=== PATIENT | female | born 1990 | race African-American/Black ===

== ENCOUNTER → 2018-05-24 12:18 | Outpatient (CLI) | payer MEDICAID ==
[2014-10-24 20:42] VITALS: BMI 35.6
[~2018-05-24 12:18] MED LIST: ACETAMINOPHEN500 M1 PO; IBUPROFEN600 MG PO; PERCOCET 5-3251 TAB PO; PRENATAL COMPLE1 TAB PO
== END | disposition home or self-care (01) ==
LOC: D.LDO 12:18
PROVIDERS: ATTEND Obstetrics & Gynecology
DX: O10.919 Unspecified pre-existing hypertension complicating pregnancy, unspecified trimester (principal); Z3A.00 Weeks of gestation of pregnancy not specified

== ENCOUNTER → 2018-05-27 13:24 | Outpatient (CLI) | payer MEDICAID ==
[2014-10-24 20:42] VITALS: BMI 35.6
== END | disposition home or self-care (01) ==
LOC: D.LDO 13:24
PROVIDERS: ATTEND Obstetrics & Gynecology
DX: O16.3 Unspecified maternal hypertension, third trimester (principal); Z3A.32 32 weeks gestation of pregnancy

== ENCOUNTER → 2018-05-31 11:43 | Outpatient (CLI) | payer MEDICAID ==
[2014-10-24 20:42] VITALS: BMI 35.6
== END | disposition home or self-care (01) ==
LOC: D.LDO 11:43
PROVIDERS: ATTEND Obstetrics & Gynecology
DX: O16.3 Unspecified maternal hypertension, third trimester (principal); Z3A.33 33 weeks gestation of pregnancy

== ENCOUNTER 2018-06-04 16:30 | Outpatient (CLI) | payer MEDICAID ==
[2014-10-24 20:42] VITALS: BMI 35.6
== END 2018-06-04 17:00 | disposition home or self-care (01) ==
LOC: D.LDO 16:30
PROVIDERS: ATTEND Obstetrics & Gynecology
DX: O26.899 Other specified pregnancy related conditions, unspecified trimester (principal); Z3A.00 Weeks of gestation of pregnancy not specified

== ENCOUNTER 2018-06-07 13:18 | Outpatient (CLI) | payer MEDICAID ==
[2014-10-24 20:42] VITALS: BMI 35.6
== END 2018-06-07 14:26 | disposition home or self-care (01) ==
LOC: D.LDO 13:18
PROVIDERS: ATTEND Obstetrics & Gynecology
DX: O26.893 Other specified pregnancy related conditions, third trimester (principal); Z3A.34 34 weeks gestation of pregnancy

== ENCOUNTER → 2018-06-11 14:22 | Outpatient (CLI) | payer MEDICAID ==
[2014-10-24 20:42] VITALS: BMI 35.6
== END | disposition home or self-care (01) ==
LOC: D.LDO 14:22
PROVIDERS: ATTEND Obstetrics & Gynecology
DX: O16.3 Unspecified maternal hypertension, third trimester (principal); Z3A.34 34 weeks gestation of pregnancy

== ENCOUNTER → 2018-06-21 14:16 | Outpatient (CLI) | payer MEDICAID ==
[2014-10-24 20:42] VITALS: BMI 35.6
[~2018-06-21 14:16] MED LIST changes: +IBUPROFEN800 MG PO
== END | disposition home or self-care (01) ==
LOC: D.LDO 14:16
PROVIDERS: ATTEND Obstetrics & Gynecology
DX: O26.893 Other specified pregnancy related conditions, third trimester (principal); Z3A.38 38 weeks gestation of pregnancy

== ENCOUNTER → 2018-06-29 00:15 | Outpatient (CLI) | payer MEDICAID ==
[2014-10-24 20:42] VITALS: BMI 35.6
== END | disposition home or self-care (01) ==
LOC: D.LDO 00:15
PROVIDERS: ATTEND Obstetrics & Gynecology
DX: O26.90 Pregnancy related conditions, unspecified, unspecified trimester (principal)

== ENCOUNTER 2018-07-01 14:06 | Inpatient (IN) | payer MEDICAID ==
[~2018-07-01] VITALS: Ht 167.6 cm; Wt 113.9 kg
[~2018-07-01 14:06] MED LIST changes: -IBUPROFEN800 MG PO
[2018-07-01] MEDS ORDERED: ACETAMINOPHEN500 M1 PO (15:47)
[2018-07-01 17:23] VITALS: BP 117/69; Ht 167.6 cm; Wt 113.9 kg
[2018-07-01 17:46] LABS: HEMATOCRIT 34.6 % (36.0-48.0); HEMOGLOBIN 11.5 g/dL (12-16); MCHC 33.2 g/dL (31.0-37.0); MCV 90.3 fL (80.0-100.0); MEAN PLATELET VOLUME 10.5 fL (7.4-10.4); RBC 3.83 10x6/uL (4.00-5.40); RDW 14.2 % (11.5-14.5); WBC 12.3 10x3/uL (4.8-10.8)
[2018-07-01 21:15] LABS: CREATININE - URINE 32.8 mg/dL (30-125); PRO/CRE RATIO URINE 0.3 mg/g; PROTEIN - URINE 8.3 mg/dL (0.0-11.9)
[2018-07-01 21:19] LABS: UDS - AMPHET NEGATIVE QUAL (NEGATIVE); UDS - BARB NEGATIVE QUAL (NEGATIVE); UDS - BENZO NEGATIVE QUAL (NEGATIVE); UDS - COCAINE NEGATIVE QUAL (NEGATIVE); UDS - OPIATE NEGATIVE QUAL (NEGATIVE); UDS - PCP NEGATIVE QUAL (NEGATIVE); UDS - THC NEGATIVE QUAL (NEGATIVE)
[2018-07-01 22:22] LABS: ALBUMIN 2.5 g/dL (3.4-5.0); ALKALINE PHOSPHATASE 158 U/L (46-116); ALT (SGPT) 18 U/L (10-68); BILIRUBIN - TOTAL 0.26 mg/dL (0.2-1.3); CALC OSMOLALITY 274 mosm/kg (275-300); CALCIUM 8.9 mg/dL (8.5-10.1); CARBON DIOXIDE 23.8 mmol/L (21.0-32.0); CHLORIDE - SERUM 105 mmol/L (98-107); CREATININE - SERUM 0.5 mg/dL (0.6-1.3); GLUCOSE 86 mg/dL (74-106); LDH 149 U/L (81-234); POTASSIUM - SERUM 3.4 mmol/L (3.5-5.1); PROTEIN - SERUM 6.3 g/dL (6.4-8.2); SODIUM 140 mmol/L (136-145); UREA NITROGEN 3 mg/dL (7-18); URIC ACID 4.1 mg/dL (2.6-7.2); eGFR NON AFRICAN AMERICAN > 90 mL/min (90-120)
[2018-07-02 08:38] LABS: HEMATOCRIT 37.2 % (36.0-48.0); HEMOGLOBIN 12.2 g/dL (12-16); MCH 29.8 pg (26.0-34.0); MCHC 32.8 g/dL (31.0-37.0); MEAN PLATELET VOLUME 10.6 fL (7.4-10.4); RBC 4.09 10x6/uL (4.00-5.40); RDW 14.2 % (11.5-14.5); WBC 22.7 10x3/uL (4.8-10.8)
--- NOTE | 2018-07-02 15:18 | NUR ---
SCHEDULED MOTRIN 800 MG GIVEN. REQUESTED PAIN MEDICATION FOR 7 ABDOMINAL CRAMPING, PERINEAL PAIN AND LEFT FOOT PAIN STATES "IT FEELS LIKE IT GOING TO POP". PERCOCET 5 MG GIVEN FOR 710 PAIN. DISCUSSED AVOIDING CROSSING LEGS, DANGLING LEGS OFF BED AND ELEVATING FEET AND LE TO HELP DECREASE LE EDEMA. ENCOURAGE PO HYDRATION. IN NURSERY. SIDE RAILS UP X 2, UP AD KAYE TO BR, VOIDING WITHOUT DIFFICULTY. DENIES FURTHER DIARRHEA. NO ADDITIONAL REQUEST. CALL LIGHT IN REACH.
--- NOTE | 2018-07-02 15:44 | NUR ---
Florence ALFORD CRNA CALLED TO GIVE PRE-OP ORDERS FOR PATIENT. BTL IS PLANNED FOR TOMORROW AT 0800.
--- NOTE | 2018-07-02 17:10 | NUR ---
REPORT OF UNEQUAL EDEMA CALLED TO DR GAMING. ORDERS RECIEVED AND NOTED.
--- NOTE | 2018-07-02 17:20 | NUR ---
PT DENIES SOB OR CHEST PAIN AT THIS TIME. POC DISCUSSED. [place] HAT PLACED IN TOILET FOR STRICT I AND O MONITORING.PT JUST FINISHED A 12OZ SPRITE WITH DINNER. EXPLAINED 3000ML FLUID RESTRICTION. PT VERBALIZES UNDERSTANDING AT THIS TIME.
--- NOTE | 2018-07-02 17:43 | NUR ---
PT IN LEFT LATERAL POSITION RESTING WITH EYES CLOSED. 20MG LASIX GIVEN SLOW IVP. FF/U/U. LIGHT RUBRA LOCHIA NOTED. PT DENIES FURTHER NEEDS AT THIS TIME
--- NOTE | 2018-07-02 19:00 | NUR ---
REPORT GIVEN TO TIANNA SPRING RN
--- NOTE | 2018-07-02 19:26 | NUR ---
PT REC'D IN HIGH FOWLERS POSITION WITH INFANT IN ARMS. PLAN OF CARE DISCUSSED. PT VERBALIZES AGREEMENT. QUESTIONS REGARDING FLUID RESTRICTION AMT ANSWERED. REQUESTS TO SHOWER FOLLOWING VISIT WITH FAMILY MEMBERS. DISCUSSED MOVING PT TO ROOM 1257, REQUESTS TO WAIT TO MOVE UNTIL SHE VISITS WITH FAMILY D/T THEM KNOWING THE ROOM THAT SHE IS IN. INSTRUCTED PT TO NOTIFY RN WHEN SHE WAS READY TO TRANSFER ROOM. VERBALIZES UNDERSTANDING. BED IN LOW POSITION WITH UPPER SIDE RAILS RAISED X2. CALL LIGHT AND PHONE WITHIN REACH. WILL CONTINUE TO MONITOR AND ASSIST PRN.
[2018-07-02 20:15] VITALS: BP 100/55
--- NOTE | 2018-07-02 20:15 | NUR ---
SHIFT ASSESSMENT COMPLETED PER FLOWSHEET. VSS. FUNDUS FIRM MIDLINE AND U2 WITH SMALL AMT RUBRA LOCHIA, NO CLOTS NOTED. C/O INTERMITTENT ABD CRAMPING, 09/21 REQUEST PAIN MED, WILL PROVIDE PER ORDER. LLE WITH 3+ PITTING EDEMA, RLE 1+, MD AWARE PER PROGRESS NOTES AND PT REPORTS THAT SHE REC'D LASIX. +2 PEDAL PULSES, STATES "IT JUST FEELS TIGHT AND UNCOMFORTABLE BECAUSE IT'S TIGHT." NO WARMTH NOTED, NEG CLONUS AND HOMANS. PIV TO L HAND FLUSHED WITHOUT DIFFICULTY WITH 5 MLS NS, NO S/S OF INFILTRATION NOTED, ANCEF INFUSION BEGAN. MILK OF MAG GIVEN PER ORDER. 550 MLS URINE EMPTIED FROM HAT. SODA PROVIDED PER PT REQUEST. DENIES ADDITIONAL NEEDS. PT STATES THAT SHE WILL SHOWER WHEN SHE MOVES TO NEW ROOM. BED IN LOW POSITION WITH UPPER SIDE RAILS RAISED X2. CALL LIGHT AND PHONE WITHIN REACH. WILL CONTINUE TO MONITOR AND ASSIST PRN.
--- NOTE | 2018-07-02 20:17 | NUR ---
PERCOCET GIVEN PER PT REQUEST/ORDER. DENIES ADDITIONAL NEEDS AT THIS TIME. BED IN LOW POSITION WITH UPPER SIDE RAILS RAISED X2. SPOUSE AT BEDSIDE, SUPPORTIVE AND ATTENTIVE TO PT AND NEEDS. WILL CONTINUE TO MONITOR AND ASSIST PRN.
--- NOTE | 2018-07-02 21:13 | NUR ---
CONVERSING WITH VISITORS. IN VISITORS ARMS. PAIN 4/10, DENIES ADDITIONAL NEEDS AT THIS TIME. BED IN LOW POSITION WITH UPPER SIDE RAILS RAISED X2. CALL LIGHT AND PHONE WITHIN REACH. WILL CONTINUE TO MONITOR AND ASSIST PRN.
--- NOTE | 2018-07-02 22:10 | NUR ---
CALLS VIA CL, SITTING ON COUCH IN ROOM. REQUESTS TO MOVE TO NEW ROOM. PT AMBULATORY TO ROOM 1257, STEADY GAIT NOTED. REQUESTS TO SHOWER PRIOR TO GETTING INTO BED. REFUSES V/S CHECK UNTILS SHE SHOWERS. PT ASKS IF SHE CAN EAT FOOD IF HER BRINGS IT TO HER PROIR TO MN, REVIEWED WITH PT THAT SHE WAS NPO P MN PER ORDER, BUT SHE COULD EAT AND DRINK UNTIL THEN, VERBALIZES UNDERSTANDING AND DENIES QUESTIONS. ROOM PREPARED PER PROTOCOL FOR SEIZURES PRECAUTIONS. PT ORIENTED TO ROOM, CL LIGHT USE, BED RAIL, AND BATHROOM. INSTRUCTED ADVERTISING CLERK LIGHT USE IN BATHROOM, VERBALIZES UNDERSTANDING. BED IN LOW POSITION WITH UPPER SIDE RAILS RAISED X2. CALL LIGHT AND PHONE WITHIN REACH. PT INSTRUCTED ON PERICARE WITH PERIBOTTLE, TUX, AND DERMAPLAST, VERBALIZES UNDERSTANDING. REINFORCE NEED FOR STRICT I&O AND NOTIFING RN WHEN SHE VOIDS, VERBALIZES UNDERSTANDING. HAT PLACED IN BATHROOM.
--- NOTE | 2018-07-02 22:25 | NUR ---
TOWELS AND WASH CLOTHES PROVIDED FOR SHOWER, REQUESTS TO WEAR HER OWN CLOTHES. INFORMED THAT SHE WOULD HAVE TO CHANGE INTO HOSPITAL GOWN PRIOR TO BTL, VERBALIZES UNDERSTANDING. PT PREPARING TO SHOWER, DENIES DIZZINESS, VERBALIZES USE OF CL IN BATHROOM. TO NBN FOR PT TO SHOWER.
[2018-07-02 23:17] VITALS: BP 117/72
--- NOTE | 2018-07-02 23:17 | NUR ---
OUT OF SHOWER. ICE WATER PROVIDED.MOTRIN GIVEN PER ORDER. ABD CRAMPING 06/22. EATING MEAL BROUGHT BY SPOUSE. REINFORCED NPO P MN, VERBALIZES UNDERSTANDING. DENIES NEEDS. VSS.
--- NOTE | 2018-07-02 23:37 | NUR ---
PAIN REASSESSMENT COMPLETED, 05/22. [place] PROVIDED PER REQUEST. BED IN LOW POSITION WITH UPPPER SIDE RAILS RAISED X2. CALL LIGHT AND PHONE WITHIN REACH. WILL CONTINUE TO MONITOR AND ASSIST PRN.
[2018-07-03] VITALS (7 sets, daily range): BP systolic 92–113; BP diastolic 32–69
--- NOTE | 2018-07-03 01:15 | NUR ---
PT. AWAKENED FOR VITAL SIGNS. AWAKENS ONLY BRIEFLY.
--- NOTE | 2018-07-03 03:09 | NUR ---
L HAND PIV FLUSHED WITH 5 MLS NS WITHOUT DIFFICULTY, NO S/S OF INFILTRATION NOTED. ANCEF INFUSION BEGAN, C/O ABD CRAMPING 8/10 FOLLOWING BF. PERCOCET GIVEN PER REQUEST WITH 30 MLS WATER. INFANT IN ARMS. VSS. 300 MLS URINE EMPTIED FROM HAT. DENIES ADDITIONAL NEEDS. BED IN LOW POSITION WITH UPPER SIDE RAILS RAISED X2. CALL LIGHT AND PHONE WITHIN REACH. WILL CONT TO MONITOR.
--- NOTE | 2018-07-03 03:42 | NUR ---
ANCEF INFUSION COMPLETED. PAIN REASSEMMENT 4-07/22, DENIES NEED FOR ADDITIONAL INTERVENTION.
--- NOTE | 2018-07-03 04:15 | NUR ---
ROUNDS MADE. PT GROGGY AND NOTED TO BE FALLING ASLEEP WHILE TRYING TO BOTTLE FEED . REQUEST BE TAKEN TO NBN FOR FEEDING. DENIES ADDITIONAL NEEDS AT THIS TIME. TO NBN PER PT REQUEST. DENIES ADDITIONAL NEEDS. BED IN LOW POSITION WITH UPPER SIDE RAILS RAISED X2. CALL LIGHT AND PHONE WITHIN REACH. WILL CONTINUE TO MONITOR AND ASSIST PRN.
--- NOTE | 2018-07-03 06:15 | NUR ---
OPENS EYE UPON RN ENTRY TO ROOM. VSS. PRE-PREOP CHECKLIST COMPLETED. PT CHANGED INTO GOWN. DENIES PAIN AT THIS TIME. IMPROVE IN BLE EDEMA NOTED SINCE FROM PREVIOUS ASSESSMENT AT BEGINNING OF SHIFT WITH RLE 1+ AND LLE 2+ PITTING. PT REPORTS THAT LLE FEELS LESS THIGHT TO HER. DENIES NEEDS. BED IN LOW POSITION WITH UPPER SIDE RAILS RAISED X2. CALL LIGHT AND PHONE WITHIN REACH. WILL CONT TO MONITOR AND ASSIST PRN.
[2018-07-03 07:13] LABS: HEMATOCRIT 29.9 % (36.0-48.0); MCH 30.3 pg (26.0-34.0); MCHC 33.4 g/dL (31.0-37.0); MCV 90.6 fL (80.0-100.0); MEAN PLATELET VOLUME 10.6 fL (7.4-10.4); PLATELET COUNT 190 10x3/uL (130-400); RDW 14.3 % (11.5-14.5); WBC 22.7 10x3/uL (4.8-10.8)
--- NOTE | 2018-07-03 07:40 | NUR ---
AM ASSESSMENT COMPLETED, FUNDUS FIRM AT U/1 WITH SCANT BLEEDING NOTED TO ADALID PAD. PREOP MEDS GIVEN ORDERED AND LR RECONNECTED AND INFUSING AT KVO. PT UP TO VOID AND UNDERSTANDS THAT MESH BRIEFS MUST BE REMOVED BEFORE GOING TO OR. VOIS 700ML WITHOUT COMPLAINT. RN MEDICAL PATHOLOGIST AND SEAFOOD PROCESS WORKER AT BEDSIDE TALKING WITH PATIENT ABOUT PROCEDURE. TAKEN OFF UNIT BY WHEELCHAIR, TO OR FOR BILATERAL TUBAL LIGATION. NURSERY NURSE NOTIFIED THAT PT OFF UNIT AND IN ROOM WITH FOB.
[2018-07-03 08:35] LABS: LYMPHOCYTES 10 % (15-50); MONOCYTES 9 % (2-11); NEUTROPHILS 76 % (40-80); PLATELET ESTIMATE NORMAL
--- NOTE | 2018-07-03 10:06 | NUR ---
PT RECEIVED BY BED FROM RECOVERY ROOM, BEDSIDE REPORT FROM Kaitlin TAN RN. PT IS AWAKE BUT STILL DROWSY, SHE IS ABLE TO MOVE SELF OVER TO HER ROOM BED WITHOUT ASSISTANCE AND POSITION FOR COMFORT ON RIGHT SIDE WITH HEAD OF BED LOWERED. VSS, O2 90% ON ROOM AIR, NC IN PLACE AND CONNECTED AT 1LPM, O2 AFTER THIS IS N0W 97%, SIDE RAILS UP X 2 AND CALL LIGHT WITH IN HER REACH. SIG OTHER AT BEDSIDE AND REQUEST THAT REMAIN IN NURSERY AT THIS TIME IF POSSIBLE. PT UNDERSTANDS TO CALL FOR NURSE IF SHE FEELS NEED TO VOID.
--- NOTE | 2018-07-03 10:30 | NUR ---
PT RESTING ON RIGHT SIDE, RESPONDS TO HER NAME AND WHEN ASKED RATES PAIN AT 3/10. STILL VERY DROWSY, SIDE RAILS UP X 2 AND CALL LIGHT IN REACH. IN ROOM BEING HELD BY FOB.
--- NOTE | 2018-07-03 11:45 | NUR ---
LARGE ICE WATER PROVIDED PER REQUEST, NO OTHER NEEDS AT THIS TIME.
--- NOTE | 2018-07-03 12:40 | NUR ---
PT RESTING WITH EYES CLOSED AND RESP EVEN, NO DISTRESS, LEFT UNDISTURBED.
--- NOTE | 2018-07-03 13:45 | NUR ---
PAIN MED GIVEN PER PT REQUEST, RATES CONSTANT THROBBING AT 7/10. PT UP TO VOID WITHOUT NEED OF ASSISTANCE CHANGES INTO HER CLOTHING AT THIS TIME ALSO. VOIDED 700ML WITHOUT COMPLAINT. 20oz CUP OF ICE PER REQUEST. INFANT IN CRIB AT BEDSIDE, SIDE RAILS UP X 2 WITH CALL LIGHT IN REACH.
--- NOTE | 2018-07-03 15:54 | NUR ---
pt visiting with friends/family. rates pain at incision site at 10, scheduled motrin given as scanned to emar. pt up to void with nurse in room, 400ml noted to collection hat. denies needs at this time.
--- NOTE | 2018-07-03 18:38 | NUR ---
PT SITTING UP IN BED FEEDING , RATES PAIN AT 1-2/10 AND UNDERSTANDS THAT PAIN MED IS AVAILABLE WHEN NEEDED. FRIENDS/FAMILY AT BEDSIDE, SIDE RAILS UP X 2 WITH CALL LIGHT IN REACH.
--- NOTE | 2018-07-03 19:14 | NUR ---
PT REC'D SITTING ON EDGE OF BED CONVERSING AND LAUGHING WITH VISITORS. DENIES NEEDS AT THIS TIME. BED IN LOW POSITION WITH UPPER SIDE RAILS RAISED X2. CALL LIGHT AND PHONE WITHIN REACH. SIDE RAILS REMAIN PADDED AND SUCTION EQUIPEMENT AT BEDSIDE PER PROTOCOL. WILL CONTINUE TO MONITOR AND ASSIST PRN.
--- NOTE | 2018-07-03 19:31 | NUR ---
SHIFT ASSESSMENT COMPLETED PER FLOWSHEET. VSS. PAIN 2/10 INTERMITTENT ABD CRAMPING, DENIES NEED FOR INTERVENTION. FUNDUS REMAINS FIRM MIDLINE AND U2 WITH SMALL AMT RUBRA LOCHIA, NO CLOTS NOTED. 350 MLS URINE EMPTIED FROM HAT. REINFORCED WITH PT THAT FLUID RESTRICTION REMAINS IN PLACE OF 3000 MLS, APPLE JUICE PROVIDED PER REQUEST (120 MLS). PT REPORTS THAT SHE IS PASSING FLATUS AND VOIDING WITHOUT DIFFICULTY. BOWEL SOUNDS PRESENT AND ACTIVE X4. DRSG TO UMIBILICUS NOTED, BORDERED GAUZE COVERED WITH TEGADERM, NO DRAINAGE NOTED. PT STATES "DR. GAMING TOLD ME IT HAD TO STAY ON FOR A WEEK." REPORTS SIGNIFICANT OTHER IS BRINGING HER A MEAL BUT SHE WILL GET DRINKS FROM STAFF. EDEMA MUCH IMPROVED FROM WHEN THIS RN CARED FOR PT DURING PREVIOUS SHIFT, BLE 1+ PITTING EDEMA, PT DENIES DISCOMFORT OF BLE. SCD'S OFF, REFUSES PLACEMENT, EDUCATED ON IMPORTANCE OF SCD'S AND THEIR PURPOSE, CONTINUES TO REFUSE. EDUCATED ON COUGHING, DEEP BREATHING, AND AMBULATING, VERBALIZES UNDERSTANDING AND REPORTS THAT SHE IS DOING COUGHING AND DEEP BREATHING INDEPENDENTLY AND HAS BEEN AMBULATING IN ROOM AND ON UNIT. STEADY GAIT NOTED. DENIES NEEDS AT THIS TIME. BED IN LOW POSITION WITH UPPER SIDE RIALS RAISED X2. CALL LIGHT AND PHONE WITHIN REACH. PT VERBALIZES THAT SHE IS DOING PERICARE INDEPENDENTLY WITH EACH VOID AND DENIES QUESTIONS. PLAN OF CARE REVIEWED WITH PT AND MED TIMES PLACED ON BOARD IN ROOM.
--- NOTE | 2018-07-03 20:51 | NUR ---
EATING MEAL BROUGHT TO HER BY SIGNIFICANT OTHER. L HAND PIV FLUSHED WITHOUT DIFFICULTY, NO S/S OF INFILTRATION NOTED. ANCEF INFUSION BEGAN. REFUSES MILK OF MAG. C/O ABD CRAMPING AND INCISIONAL PAIN 09/21, REQUESTS PERCOCET, GIVEN PER PT REQUEST/ORDER. ICE WATER PROVIDED PER REQUEST. IN OPEN CRIB AT BEDSIDE RESTING QUIETLY. BED IN LOW POSITION WITH UPPER SIDE RAILS RAISED X2. CALL LIGHT AND PHONE WITHIN REACH. WILL CONTINUE TO MONITOR AND ASSIST PRN.
--- NOTE | 2018-07-03 21:20 | NUR ---
ANCEF INFUSION COMPLETED. L HAND PIV FLUSHED WITH 3 MLS AND SL. PAIN 3-10. ATE 100% OF MEAL BROUGHT BY FAMILY AND DRANK 300 MLS OF WATER. DENIES NEEDS. IN ARMS.
--- NOTE | 2018-07-03 22:10 | NUR ---
SITTING ON EDGE OF BED BOTTLE FEEDING . DENIES NEEDS. 200 MLS URINE EMPTIED FROM HAT. BED IN LOW POSITION WITH UPPER SIDE RAILS RAISED X2. CALL LIGHT AND PHONE WITHIN REACH. WILL CONTINUE TO MONITOR AND ASSIST PRN.
--- NOTE | 2018-07-03 23:20 | NUR ---
SCHEDULED MOTRIN GIVEN PER ORDER. PAIN 4-5/10, ABD CRAMPING AND "SORE, BUT ONLY WHEN I MOVE." VSS. FUNDUS FIRM, MIDLINE AND U2 WITH SMALL RUBRA LOCHIA. 300 MLS URINE EMPTIED FROM HAT. PT NOTIFIED THAT 3000 MLS FLUID ORDER D/C AND VERBALIZED UNDERSTANDING. ICE WATER PROVIDED. DENIES ADDITIONAL NEEDS. INFANT RESTING QUEITLY IN OPEN CRIB AT BEDSIDE. BED IN LOW POSITION WITH UPPER SIDE RAILS RAISED X2. CALL LIGHT WITHIN REACH.
--- NOTE | 2018-07-04 00:03 | NUR ---
PAIN REASSESSMENT COMPLETED. VERBALIZES NO CHANGE IN PAIN. DISCUSSED POSSIBLE INTERVENTIONS. STATES THAT SHE DOESN'T NEED INTERVENTION AT THIS TIME. BED IN LOW POSITION WITH UPPER SIDE RAILS RAISED X2. CALL LIGHT AND PHONE WITHIN REACH. WILL CONTINUE TO MONITOR AND ASSIST PRN.
--- NOTE | 2018-07-04 00:30 | NUR ---
CALLS VIA CALL LIGHT REQUESTING PAIN MEDICATION. STATES THAT GOT UP TO VOID AND WHEN SHE MOVED INFANTS CRIB "I BUMPED MY BELLY AT MY INCISION." PAIN 6/10 INCISIONAL BURNING AND STINGING. PERCOCET PROVIDED. 300 MLS URINE EMPTIED FROM HAT. BED IN LOW POSITION WITH UPPER SIDE RAILS RAISED X2. CALL LIGHT AND PHONE WITHIN REACH. WILL CONTINUE TO MONITOR AND ASSIST PRN.
--- NOTE | 2018-07-04 01:13 | NUR ---
LAYING ON RIGHT SIDE RESTING WITH EYES CLOSED. RESPIRATIONS REGULAR UNLABORED, NO S/S OF DISTRESS NOTED. BED IN LOW POSITION WITH UPPER SIDE RAILS RAISED X2. CALL LIGHT AND PHONE WITHIN REACH. WILL CONTINUE TO MONITOR AND ASSIST PRN.
--- NOTE | 2018-07-04 02:49 | NUR ---
L HAND PIV FLUSHED, NO S/S INFILTRATION NOTED. ANCEF INFUSION BEGAN. PT RESTING ON RIGHT SIDE AT THIS TIME. DENIES NEEDS SIGNIFICANT OTHER AT BEDSIDE, SUPPORTIVE AND ATTENTIVE TO PT AND HER NEEDS. BED IN LOW POSITION WITH UPPER SIDE RAILS RAISED X2. CALL LIGHT AND PHONE WITHIN REACH. WILL CONTINUE TO MONITOR AND ASSIST PRN.
[2018-07-04 03:26] VITALS: BP 99/58
--- NOTE | 2018-07-04 03:26 | NUR ---
ANCEF INFUSION COMPLETED. LINE FLUSHED. PT REQUESTS PIV BE REMOVED. STATES THAT HAND IS SORE FROM "WHERE I KEEP BUMPING." EXPLAINED THAT IF IV ACCESS WAS NEEDED ANOTHER IV MAY HAVE TO BE STARTED, VERBALIZED UNDERSTANDING. PIV REMOVED FROM L HAND, TIP INTACT, BANDAID PLACED OVER INSERTION SITE. VSS. FUNDUS REMAINS FIRM, MIDLINE AND U2 WITH SCANT RUBRA LOCHIA. 400 MLS URINE EMPTIED FROM HAT. DENIES NEEDS. INFANT IN NBN. PT STATES THAT SHE IS GOING TO REST. BED IN LOW POSITION WITH UPPER SIDE RAILS RAISED X2. CL AND PHONE WITHIN REACH. WILL CONTINUE TO MONITOR AND ASSIST PRN. SIGNIFICANT OTHER RESTING ON COUCH AT BEDSIDE.
--- NOTE | 2018-07-04 04:51 | NUR ---
RESTING QUIETLY LAYING ON LEFT SIDE. RESPIRATIONS REGULAR AND UNLABORED, NO S/S OF DISTRESS NOTED. BED IN LOW POSITION WITH UPPER SIDE RAILS RAISED X2. CALL LIGHT AND PHONE WITHIN REACH. WILL CONTINUE MONITOR AND ASSIST PRN.
[2018-07-04 06:22] LABS: BASOPHILS 0.1 % (0-2); EOSINOPHILS 0.8 % (0-7); HEMOGLOBIN 9.5 g/dL (12-16); IMMATURE GRANULOCYTES 0.6 % (0-5); LYMPHOCYTES 29.1 % (15-50); MCH 29.8 pg (26.0-34.0); MCHC 32.8 g/dL (31.0-37.0); MCV 90.9 fL (80.0-100.0); MEAN PLATELET VOLUME 10.2 fL (7.4-10.4); MONOCYTES 9.9 % (2-11); NEUTROPHILS 59.5 % (40-80); PLATELET COUNT 201 10x3/uL (130-400); RBC 3.19 10x6/uL (4.00-5.40); RDW 14.1 % (11.5-14.5)
--- NOTE | 2018-07-04 06:22 | NUR ---
RESTING ON RIGHT SIDE WITH EYES CLOSED, RESPIRATIONS REGULAR AND UNLABORED, NO S/S OF DISTRESS NOTED. BED IN LOW POSITION WITH UPPER SIDE RAILS RAISED X2. CALL LIGHT AND PHONE WITHIN REACH. WILL CONTINUE TO MONITOR AND ASSIST PRN.
[2018-07-04 06:29] LABS: WBC 15.1 10x3/uL (4.8-10.8)
[2018-07-04 08:00] VITALS: BP 131/86
--- NOTE | 2018-07-04 08:00 | NUR ---
AM ASSESSMENT COMPLETED CHARTED ON FLOWSHEET. PT SITTING UP HOLDING INFANT WITH SIG OTHER AT BEDSIDE. RATES PAIN AT 4/10, SCHEDULED MOTRIN 800MG GIVEN SCANNED TO EMAR. PT REQUEST CEREAL WITH FRUIT BOWL FOR BREAKFAST, THIS ORDER PLACED AND DIETARY NOTIFIED. FUNDUS FIRM WITH MASSAGE AND SCANT BLEEDING NOTED. BANDAGE AT UMBILICAL AREA FROM BTL CLEAN DRY AND IN PLACE. TOWELS PLACED IN BATHROOM FOR PT TO SHOWER WHEN READY. D
--- NOTE | 2018-07-04 11:00 | NUR ---
CALLED TO ROOM, PT SITTING UP ON SIDE OF BED WITH . PERCOCET GIVEN REQUESTED FOR PAIN THAT IS RATED AT 7/10. INFANT TAKEN TO NURSERY SO THAT PT CAN SHOWER, STATES SHE WILL CALL OR COME PICK HIM UP SOON SHE HAS FINISHED SHOWERING.
--- NOTE | 2018-07-04 13:45 | NUR ---
DR GAMING CALLED AND DISCHARGE ORDER VERIFIED.
[2018-07-04] MEDS ORDERED: IBUPROFEN800 MG PO ×2 (13:57→13:58)
[2018-07-04] MEDS ORDERED: PERCOCET 5-3251 TAB PO (13:57)
--- NOTE | 2018-07-04 14:15 | NUR ---
VERBAL AND WRITTEN DISCHARGE INSTRUCTIONS GONE OVER WITH PT VOICING HER UNDERSTANDING OF FOLLOW UP APPOINTMENT, S/S OF INFECTION, AND PAIN CONTROL. WRITTEN SCRIPT FOR PERCOCET 5/325MG ALSO GIVEN AT THIS TIME. FOB PROVIDED WITH WORK EXCUSE FOR DATES 07/01/18 THRU 07/04/18. PT WILL CALL WHEN INFANT IS SECURED INTO CARRIER.
--- NOTE | 2018-07-04 14:30 | NUR ---
PT TAKEN OUT BY WHEELCHAIR WITH SECURE IN CARRIER. HOME BY PRIVATE CARE WITH SIG OTHER.
== END 2018-07-04 14:30 | disposition home or self-care (01) | DRG 768 ==
LOC: D.LDO 14:06 → D.LD 15:50
PROVIDERS: ADMIT Obstetrics & Gynecology; ATTEND Obstetrics & Gynecology
PROC: 10E0XZZ Delivery of Products of Conception, External Approach (ICD-10-PCS; principal; 2018-07-02)
PROC: 0W3R7ZZ Control Bleeding in Genitourinary Tract, Via Natural or Artificial Opening (ICD-10-PCS; 2018-07-02)
PROC: 0HQ9XZZ Repair Perineum Skin, External Approach (ICD-10-PCS; 2018-07-02)
PROC: 0UB70ZZ Excision of Bilateral Fallopian Tubes, Open Approach (ICD-10-PCS; 2018-07-03)
DX: O10.92 Unspecified pre-existing hypertension complicating childbirth (principal); Z37.0 Single live birth; O72.1 Other immediate postpartum hemorrhage; Z3A.37 37 weeks gestation of pregnancy; O99.334 Smoking (tobacco) complicating childbirth; Z30.2 Encounter for sterilization; Z30.09 Encounter for other general counseling and advice on contraception; O99.214 Obesity complicating childbirth; O70.0 First degree perineal laceration during delivery